=== PATIENT | female | born 1960 | race Caucasian/White ===

== ENCOUNTER → 2020-04-17 08:25 | Outpatient (CLI) | payer OTHER | END | disposition home or self-care (01) | LOC: D.NM 08:25 | PROVIDERS: ATTEND Internal Medicine Gastroenterology | DX: R10.13 Epigastric pain (principal); R14.0 Abdominal distension (gaseous) ==

== ENCOUNTER 2020-12-07 14:50 | Observation (INO) | payer OTHER ==
[~2020-12-07] VITALS: Ht 154.9 cm; Wt 85.7 kg
--- NOTE | ~2020-12-07 | EC ---
PATIENT:SABINO ARROYO DATE OF SERVICE: 12/07/20 SEX: F MEDICAL RECORD: [id number] DATE OF : [birth year] LOCATION:D.M2 D.210 AGE OF PATIENT: 60 ADMISSION DATE: 12/07/20 REFERRING PHYSICIAN: INTERPRETING PHYSICIAN: CRISTA MARTINEZ MD ECHOCARDIOGRAM REPORT ECHO CHARGES 4 ECHO COMPLETE Date: 12/08/20 CLINICAL DIAGNOSIS: MVP ECHOCARDIOGRAPHIC MEASUREMENTS (adult normal given) AC root (d.<3.7cm) 3.1 cm LV Septum d (<1.2 cm> 1.2 cm Valve Excursion 2.1 cm LV Septum (systole) 1.4 cm Left Atria (s.<4.0cm> 4.4 cm LVPW d(<1.2cm) 1.1 cm RV (d.<2.3cm) 3.8 cm LVPW (sytole) 1.4 cm LV diastole(<5.6CM) 4.8 cm MV E-F(>70mm/sec) cm LV systole 2.9 cm LVOT Diameter 2.0 cm MV exc.(>10mm) cm Est.ejection fraction (50-75%) 55 % DOPPLER: LVIT cm/sec A 63 cm/sec E 71 cm/sec LA cm/sec RVSP 38 mmHg LVOT 136 cm/sec AOP1/2T m/s Asc. Ao 160 cm/sec RVOT 67 cm/sec RA 4.2 cm/sec PA 85 cm/sec AV Gradient Peak 10 mmHg AV Mean 5 mmHg AV Area 2.3 cm MV Gradient Peak 2 mmHg MV Mean 0.9 mmHg MV Area cm COMMENTS: Registered Sales Assistant: Nadege HEAD Patient Relations Specialist: 3 Dr. Mccloud TAPE# Pericardial Effusion DATE OF SERVICE: Adequate 2D, spectral Doppler, and M-Mode FINDINGS: No LVH. LV internal dimensions were normal. Wall motion was normal. EF is greater than or equal to 55%. Aortic valve is tricuspid with good valve excursion. No significant AI. Left atrium is mildly dilated at 4.4 cm. The mitral valve was redundant with prolapse of the posterior leaflet, but only mild MR. Right-sided chamber is grossly normal. Trace TR. ECHOCARDIOGRAM REPORT [id number] SABINO ARROYO TRANSINT:[id number] Voice Confirmation ID: [id number] DOCUMENT ID: [id number] CRISTA MARTINEZ MD CC: [id number] DICTATION DATE: 12/11/20 1140 FOOD SERVICE STEWARD: 12/11/20 1404 DIS IN 12/10/20 [facility] [address] [id number]
[2020-12-07] MEDS ORDERED: CARBIDOPA-LEVO1 EAC2 PO (15:24)
[2020-12-07] MEDS ORDERED: SINEMET CR 50-1 EACH PO (15:26)
[2020-12-07] MEDS ORDERED: CELEXA40 MG PO (15:27)
[2020-12-07] MEDS ORDERED: PEPCID40 MG PO (15:27)
[2020-12-07] MEDS ORDERED: TRAZODONE HCL50 MG PO (15:28)
[2020-12-07] MEDS ORDERED: FEXOFENADINE H180 MG PO (15:28)
[2020-12-07 15:51] LABS: EOSINOPHILS 3.7 % (0-7); HEMATOCRIT 40.3 % (36.0-48.0); HEMOGLOBIN 13.5 g/dL (12-16); MCHC 33.4 g/dL (31.0-37.0); MEAN PLATELET VOLUME 9.2 fL (7.4-10.4); MONOCYTES 6.5 % (2-11); NEUTROPHILS 61.8 % (40-80); PLATELET COUNT 193 10x3/uL (130-400); RBC 4.48 10x6/uL (4.00-5.40); RDW 13.3 % (11.5-14.5); WBC 6.9 10x3/uL (4.8-10.8)
[2020-12-07 15:58] LABS: APTT 28.7 SECONDS (22.8-39.4); INR 1.01 (0.85-1.17); PROTIME 12.3 SECONDS (11.6-15.0)
[2020-12-07 16:00] VITALS: BP 128/57
[2020-12-07 16:01] LABS: CALC OSMOLALITY 289 mosm/kg (275-300); CALCIUM 9.2 mg/dL (8.5-10.1); CARBON DIOXIDE 27.9 mmol/L (21.0-32.0); CHLORIDE - SERUM 105 mmol/L (98-107); CREATININE - SERUM 0.8 mg/dL (0.6-1.3); GLUCOSE 165 mg/dL (74-106); POTASSIUM - SERUM 3.6 mmol/L (3.5-5.1); SODIUM 143 mmol/L (136-145); UREA NITROGEN 15 mg/dL (7-18); eGFR NON AFRICAN AMERICAN 77 mL/min (90-120)
[2020-12-07 16:07] LABS: ALBUMIN 3.4 g/dL (3.4-5.0); ALKALINE PHOSPHATASE 78 U/L (30-120); ALT (SGPT) 10 U/L (10-68); BILIRUBIN - TOTAL 0.39 mg/dL (0.2-1.3); MAGNESIUM - SERUM 1.8 mg/dL (1.8-2.4); PROTEIN - SERUM 6.5 g/dL (6.4-8.2)
[2020-12-07 16:10] LABS: TROPONIN-I < 0.017 ng/mL (0.000-0.060)
[2020-12-07 17:00] VITALS: BP 129/61
[2020-12-07 18:00] VITALS: BP 111/43
[2020-12-07 20:54] VITALS: BP 150/71; BMI 35.8
--- NOTE | 2020-12-07 20:59 | NUR ---
PT RECEIVED TO ROOM 2105 AWAKE, ALERT ORIENTED. REPORTS SOB RECENTLY. STATES [facility] TOLD HER TO COME TO ED FOR A COLLAPSED LUNG. O2 SAT 94% ON RA. VSS. PT REPORTS A G TUBE THAT SHE USES TO DO INFUSIONS FOR HER PARKINSON'S HER GRANDDAUGHTER IS GOING TO BRING THIS TOMORROW. PT DENIES ANY ACUTE ISSUES, RESTING COMFORTABLY CALL LIGHT IN REACH. MED REC COMPLETED. [facility]
[2020-12-07 22:10] LABS: CKMB 1.2 U/L (0.0-3.6); CREATINE KINASE 58 UL (21-215)
[2020-12-07 22:12] LABS: TROPONIN-I < 0.017 ng/mL (0.000-0.060)
[2020-12-08] VITALS: BP 120/61
[2020-12-08 04:00] VITALS: BP 114/55
[2020-12-08 05:14] LABS: CREATINE KINASE 49 UL (21-215); TROPONIN-I < 0.017 ng/mL (0.000-0.060)
--- NOTE | 2020-12-08 07:30 | NUR ---
Sitting up in bed, awake/alert/oriented, T/R self ad feliciano, cont of B/B with BRPs per self ad feliciano, denies pain/other discomfort at this time, GTube placement checked via A/A with no problems observed, home meds placed in pt bin of the med cart, call light/phone/water within reach, no s/s of acute distress observed.
[2020-12-08 08:01] VITALS: BP 126/65
[2020-12-08 09:44] LABS: CREATINE KINASE 38 UL (21-215)
[2020-12-08 09:47] LABS: TROPONIN-I < 0.017 ng/mL (0.000-0.060)
--- NOTE | 2020-12-08 11:00 | NUR ---
Home meds labeled/placed in medcart and in refrigerator, notified pharmacy. 1200 Pharmacy provided labels for pt home meds she is to take while here.
[2020-12-08 12:00] VITALS: BP 115/62
[2020-12-08 13:10] VITALS: BMI 35.7
--- NOTE | 2020-12-08 14:07 | CN ---
PATIENT NAME:SABINO ARROYO MEDICAL RECORD: [id number] : 58 LOCATION:D. D.2105 ADMIT DATE: 12/07/20 ACCOUNT: [id number] CONSULTING PHYSICIAN: CRISTA MARTINEZ MD REFERRING PHYSICIAN: CARYN BENJAMIN MD DATE OF CONSULTATION: 12/08/2020 HISTORY OF PRESENT ILLNESS: A 60-year-old female with a known history of coronary artery disease, status post intervention most recently back in 2014 by her report, has a history of mitral valve prolapse, arrhythmogenic type, with various arrhythmias including trigeminy at one point, noticed increase in dyspnea with exertion over the past few months, part of it she felt may be secondary to deconditioning, had colectomy, reanastomosis for colitis as well as mood recently. Also has a history of Parkinson's, was trying to walk her dog, but was not increasing exercise capacity or strength in the quadriceps, etc. We were asked to see her concerning her cardiovascular status. PAST MEDICAL HISTORY: Includes: 1. History of Parkinson's. 2. Coronary artery disease as described above. 3. Mitral valve prolapse. ALLERGIES: INCLUDE ADHESIVE TAPE, LEVAQUIN, VIOXX. SOCIAL HISTORY: Recently moved here and retired. Her will be moving here in December. Able to take care of all her ADLs. Nonsmoker. Nondrinker. Does try to exercise on a regular basis. MEDICATIONS: Include Anahi 180 q. day, carbidopa 2 tabs q.4, Celexa 40 q. day, trazodone 100 mg at bedtime, famotidine 40 q. day. REVIEW OF SYSTEMS: The patient reports easy bruising but reports no swollen glands. The patient reports no fever, no night sweats, no significant weight gain, no significant weight loss. No significant exercise tolerance. The patient reports no dry eyes, no irritation, no vision change. Patient reports no difficulty hearing and no ear pain. Patient reports no frequent nose bleeds or nose and sinus problems. Patient reports on arm pain on exertion. No shortness of breath while lying down. No history of heart murmur. Patient reports no cough, no wheezing or coughing up blood. Patient reports no abdominal pain, no vomiting. Normal appetite. No diarrhea and not vomiting blood. No nausea and no constipation. Patient reports no incontinence. No difficulty urinating. No hematuria. No increased frequency. Patient reports no muscle aches. No weakness, no arthralgias, no back pain. No swelling of the extremities. Patient reports no abnormal mole, no jaundice, no rashes. Reports no loss of consciousness. No weakness and no numbness. No seizures, dizziness, or headaches. The patient reports no depression, no sleep disturbance, feeling safe in a relationship and no alcohol abuse. Patient reports on fatigue. Reports no runny nose or sinus pressure. No itching, no hives, and no frequent sneezing. PHYSICAL EXAMINATION: GENERAL: Pleasant, in no acute distress, appears stated age, alert and oriented. VITAL SIGNS: 126/55, pulse 60 and regular. HEENT: Normocephalic, atraumatic. CONSULT REPORT [id number] SABINO ARROYO NECK: No bruits were noted. HEART: Regular, II/ systolic ejection murmur. I do not hear a click. LUNGS: Diminished air excursion, few expiratory wheezes. ABDOMEN: Soft and nontender. EXTREMITIES: Pulses 2+. No edema. DIAGNOSTIC DATA: EKG shows nonspecific ST-T changes. IMPRESSION AND PLAN: Progressive possible anginal equivalent versus intrinsic lung disease with known history of coronary artery disease, mitral valve prolapse. Check echocardiographic study. If nothing delineating further from pulmonary standpoint, certainly we will need to consider delineation of ischemic burden this admission. TRANSINT:[id number] Voice Confirmation ID: [id number] DOCUMENT ID: [id number] CRISTA MARTINEZ MD at 1407 CC: [id number] DICTATION DATE: 12/08/20855 SKI INSTRUCTOR: 12/08/20 1112 ADM IN [id number] [place] [address]
[2020-12-08 16:15] VITALS: BP 123/50
[2020-12-08 18:40] VITALS: BP 115/66
--- NOTE | 2020-12-08 19:00 | NUR ---
pt lying in bed talking on cell phone. no distress noted will continue to monitor
[2020-12-08 19:59] VITALS: Ht 154.9 cm; Wt 85.7 kg
[2020-12-09] VITALS: BP 127/61
[2020-12-09 04:00] VITALS: BP 110/59
--- NOTE | 2020-12-09 07:05 | NUR ---
PT LYING IN BED WITH EYES CLOSED. RAISES TO VERBAL STIMULI. RESP EVEN AND UNLABORED. AAO X4. DENIES NEEDS AT THIS TIME. CLIR. BED IN LOWEST POSITION. SIDE RAILS X2
[2020-12-09 07:49] VITALS: BP 102/59
[2020-12-09 11:37] LABS: BASOPHILS 0.2 % (0-2); EOSINOPHILS 0 % (0-7); HEMATOCRIT 40.8 % (36.0-48.0); HEMOGLOBIN 13.3 g/dL (12-16); LYMPHOCYTES 15.7 % (15-50); MCH 29.7 pg (26.0-34.0); MCHC 32.6 g/dL (31.0-37.0); MONOCYTES 6.1 % (2-11); PLATELET COUNT 210 10x3/uL (130-400); RBC 4.48 10x6/uL (4.00-5.40); RDW 13.2 % (11.5-14.5)
[2020-12-09 11:40] LABS: WBC 9.7 10x3/uL (4.8-10.8)
[2020-12-09 11:54] LABS: CALC OSMOLALITY 285 mosm/kg (275-300); CALCIUM 9.2 mg/dL (8.5-10.1); CARBON DIOXIDE 28.6 mmol/L (21.0-32.0); CHLORIDE - SERUM 105 mmol/L (98-107); CREATININE - SERUM 0.7 mg/dL (0.6-1.3); GLUCOSE 104 mg/dL (74-106); SODIUM 142 mmol/L (136-145); UREA NITROGEN 20 mg/dL (7-18); eGFR NON AFRICAN AMERICAN 90 mL/min (90-120)
[2020-12-09 12:02] VITALS: BP 103/52
[2020-12-09 16:03] VITALS: BP 104/56
--- NOTE | 2020-12-09 18:03 | NUR ---
I have reviewed this patient and I concur with the Shift Assessment completed by the Licensed Practical Nurse today this shift.
[2020-12-09 19:34] VITALS: BP 136/62
--- NOTE | 2020-12-09 21:35 | NUR ---
REPORT RECEIVED. PT A&O, UP IN BED WATCHING TV. NO S/S OF DISTRESS OBSERVED. RR EVEN & UNLABORED ON RA. IV TO L FA SL, PATENT, SWAB CAP IN PLACE. SB 57 ON TELE. BED LOCKED AND LOWERED, CL IN REACH. ASSESSMENT COMPLETE. WILL CONT POC.
[2020-12-10 00:28] VITALS: BP 127/59
[2020-12-10 04:10] VITALS: BP 108/48
[2020-12-10 08:17] VITALS: BP 126/68
[2020-12-10 12:11] VITALS: BP 117/61
--- NOTE | 2020-12-10 13:18 | NUR ---
SALINE LOCK TAKEN OUT AND DRESSING APPLIED, DISCHARGE PAPERS DISCUSSED WITH PATIENT AND OWN MEDICATIONS GIVEN BACK. TO CAR VIA W/C.
== END 2020-12-10 13:19 | disposition home or self-care (01) ==
LOC: D.ER 14:50 → D.M2 19:58 → OBSVTIME 19:58 → D.M2 12-10 13:19
PROVIDERS: Emergency Medicine; Family Medicine; ADMIT Legal Medicine; ATTEND Legal Medicine
DX: R06.00 Dyspnea, unspecified (principal); M32.9 Systemic lupus erythematosus, unspecified; R73.9 Hyperglycemia, unspecified; G20 Parkinson's disease; I25.10 Atherosclerotic heart disease of native coronary artery without angina pectoris

== ENCOUNTER → 2020-12-24 12:37 | Outpatient (CLI) | payer OTHER ==
[2020-12-08 19:59] VITALS: BMI 35.8
[~2020-12-24 12:37] MED LIST: CARBIDOPA-LEVO1 EAC2 PO; CELEXA40 MG PO; FEXOFENADINE H180 MG PO; PEPCID40 MG PO; SINEMET CR 50-1 EACH PO; TRAZODONE HCL50 MG PO
== END | disposition home or self-care (01) ==
LOC: D.LAB 12:37
PROVIDERS: ATTEND Nurse Practitioner Family
DX: R06.09 Other forms of dyspnea (principal)

== ENCOUNTER → 2020-12-28 14:21 | Outpatient (CLI) | payer OTHER ==
[2020-12-08 19:59] VITALS: BMI 35.8
== END | disposition home or self-care (01) ==
LOC: D.RT 14:21
PROVIDERS: ATTEND Nurse Practitioner Family
DX: R06.09 Other forms of dyspnea (principal)

== ENCOUNTER → 2021-01-15 08:09 | Outpatient (CLI) | payer OTHER ==
[2020-12-08 19:59] VITALS: BMI 35.8
== END | disposition home or self-care (01) ==
LOC: D.HCCARDIO 08:09
PROVIDERS: ATTEND Internal Medicine Cardiovascular Disease
DX: I20.9 Angina pectoris, unspecified (principal)